=== PATIENT | male | born 1985 ===

== ENCOUNTER 2017-04-17 23:56 | Emergency (ER) | payer OTHER | END 2017-04-18 03:08 | disposition home or self-care (01) | LOC: ER 23:56 | PROC: 0HQGXZZ Repair Left Hand Skin, External Approach (ICD-10-PCS; principal; 2017-04-17) | DX: S61.112A Laceration without foreign body of left thumb with damage to nail, initial encounter (principal); W26.8XXA Contact with other sharp object(s), not elsewhere classified, initial encounter | CPT/HCPCS: 73140-LT; 90471; 90714; 99283 ==